=== PATIENT | female | born 1960 | race Caucasian/White ===

== ENCOUNTER 2022-06-12 09:31 | Emergency (ER) | payer OTHER, SELFPAY ==
[2022-06-12 09:41] VITALS: BP 137/117; PULSE 69; RESP 16; TEMP 36.7; O2SAT 98; BMI 20.8
--- NOTE | 2022-06-12 10:15 | ED_ITS ---
HPI - General Adult General Chief complaint: General Medical Stated complaint: Needs medication refill Time Seen by Provider: 06/12/22 10:15 Source: patient and family () Mode of arrival: ambulatory Limitations: no limitations History of Present Illness HPI narrative: Patient is a 62 year old assigned female at with a history of diabetes and hypertension presenting to the emergency department today requesting medication refills. Patient states that in December of this year she moved here from [place] and has since gotten to her . Patient states that she is still in the process of getting her visa figured out and getting into a primary care provider. Patient states that she would like refills of her hypertension and diabetes medication. Patient denies any dizziness, li ghtheadedness, abdominal pain, nausea, vomiting, fever, chills, blurry vision, double vision, loss of vision, chest pain, difficulty breathing, shortness of breath, back pain, night sweats, pain with urination, increased urinary frequency, increased urinary urgency, blood in her urine or stool, syncope or a near syncopal episode, recent trauma or falls, bowel incontinence, bladder incontinence, bowel retention, bladder retention, or any other complaints at this time. Severity: mild Severity scale (1-10): 1 Relieving factors: none Exacerbating factors: none Associated symptoms: denies other symptoms Treatments prior to arrival: none Related Data Previous Rx's Medication Instructions Recorded aspirin 81 mg tablet,delayed 81 mg PO DAILY #90 tabs 06/12/22 release (Enteric Coated Aspirin) ezetimibe 10 mg-simvastatin 80 mg 1 tab PO DAILY #90 tabs 06/12/22 tablet (Vytorin) fluoxetine 20 mg capsule 20 mg PO DAILY #90 caps 06/12/22 levetiracetam 1,000 mg tablet 1,000 mg PO BID #180 tabs 06/12/22 metformin 1,000 mg tablet 1,000 mg PO BID #180 tabs 06/12/22 metoprolol tartrate 50 mg tablet 50 mg PO BID #180 tabs 06/12/22 pantoprazole 40 mg tablet,delayed 40 mg PO DAILY #90 tabs 06/12/22 release sitagliptin phosphate 100 mg 100 mg PO DAILY #90 tabs 06/12/22 tablet (Januvia) Allergies Allergy/AdvReac Type Severity Reaction Status Date / Time No Known Allergies Allergy Verified 06/12/22 09:40 Review of Systems Constitutional: Constitutional: Reports no additional constitutional complaints, Denies chills, Denies fever(s) and Denies night sweats Eyes: Eyes: Reports no additional eye complaints, Denies blurry vision, Denies change in vision, Denies diplopia, Denies eye discharge, Denies loss of vision and Denies eye pain ENT: Denies dizziness Cardiovascular: Cardiovascular: Reports no additional cardiovascular complaints, Denies chest pain, Denies lightheadedness, Denies Loss of Consciousness and Denies dyspnea Respiratory: Respiratory: Reports no additional respiratory complaints and Denies dyspnea Gastrointestinal: Gastrointestinal: Reports no additional gastrointestinal complaints, Denies abdominal pain, Denies melena, Denies hematochezia, Denies change in bowel habits and Denies change in stool character Genitourinary: Genitourinary: Denies hematuria, Denies urinary frequency, Denies dysuria, Denies urinary incontinence, Denies urinary hesitancy and Denies urinary urgency Musculoskeletal: Musculoskeletal: Reports no additional musculoskeletal complaints, Denies numbness and Denies tingling Neurologic: Denies dizziness, Denies loss of vision, Denies numbness and Denies tingling Psychiatric: Psychiatric: Reports no additional psychiatric complaints Endocrine: Endocrine: Reports no additional endocrine complaints Hematologic/Lymphatic: Hematologic/Lymphatic: Reports no additional hematologic/lymphatic complaints Allergic/Immunologic: Allergic/Immunologic: Reports no additional allergic/immunologic complaints PMFSH Past Medical History Attestation statement: The following information was validated with the patient. Source: old records reviewed, obtained from family (patient's ) and nursing notes reviewed Social History Social History Advance Directives: No Advance Directives Information Provided: Yes Physical Exam ED Vital Signs: Vital Signs - 24 hr 06/12/22 09:41 Temperature 98.0 F Pulse Rate 69 Respiratory Rate 16 Blood Pressure 137/117 H Pulse Oximetry 98 Oxygen Delivery Method Room Air BMI result Body Mass Index 20.8 Const General: cooperative, no acute distress, alert and awake Nutritional Appearance: well nourished Orientation/consciousness: patient oriented x3 Limitations: no limitations HENMT Head: Yes normal to inspection and Yes atraumatic Ears: hearing grossly normal bilaterally and external ears normal General nose exam: Normal external nose present, no nasal discharge noted and no epistaxis Face and sinus: Yes normal facial exam, No abrasion and No laceration Mouth: Normal oral and palatal mucosa present, no drooling and no muffled voice Eyes General: appearance normal, both eyes and all related structures Periorbital: periorbital findings normal Eyelids: Yes eyelids normal Conjunctivae: conjunctivae normal Pupils: Equal, round and reactive pupils present EOM: EOMs intact bilaterally Neck Neck: Yes normal visual inspection, Yes full ROM and Yes no lymphadenopathy Chest Chest palpation & inspection: normal inspection of the chest Resp Effort & Inspection: normal respiratory effort and able to speak in complete sentences Auscultation: clear to auscultation bilaterally Cardio Rate: regular rate Rhythm: regular rhythm GI Inspection: Yes normal to inspection Palpation (GI): Soft to palpation, not firm, nontender and no guarding Neuro General: patient oriented x3 and moves all extremities Cranial nerves: Yes Equal, round and reactive pupils present Cognition (Neuro): normal cognition Motor exam (neuro): 5/5 motor strength present throughout Sensory Exam: Normal double simultaneous stimulation for sensation Coordination: [id number] test normal Extrem General: Yes normal to inspection, Yes full ROM and Yes capillary refill normal Psych Appearance: grossly normal Mental Status: mental status grossly normal Affect: normal affect Attitude: cooperative Thought process: Normal thought process present Thought content: Normal thought content present Insight: Good insight present (Psych) Medical Decision Making Medical Decision Making MDM Narrative: Patient is a 62 year old assigned female at with a history of diabetes and hypertension presenting to the emergency department today requesting medication refills. Patient's physical exam was unremarkable. I explained my physical exam findings to the patient and the patient's . I answered all questions asked by the patient and the patient's . I stressed the importance of the patient taking her medication as prescribed. I stressed the importance of the patient following up with a primary care provider. I stressed the importance of the patient returning to the emergency department immediately if she were to develop any dizziness, shortness of breath, difficulty breathing, chest pain, blurry vision, loss of vision, nausea, vomiting, abdominal pain, fever, chills, back pain, or any other complaints. Patient and the patient's verbalized agreement and understanding with this treatment plan and discharge. Independent Historian Clinical information obtained from an independent historian. History obtained from or confirmed by: Spouse () Discharge Plan Discharge Clinical Impression: Encounter for medication refill Patient Disposition: Home, Self-Care Instructions: Medicine Refill (ED) Additional Instructions: Follow up with a primary care provider. Return to the emergency department immediately if your symptoms worsen or if you develop any dizziness, shortness of breath, difficulty breathing, chest pain, blurry vision, loss of vision, nausea, vomiting, abdominal pain, fever, chills, back pain, or any other complaints. Prescriptions: New aspirin [Enteric Coated Aspirin] 81 mg tablet,delayed release (DR/EC) 81 mg PO DAILY Qty: 90 0RF Januvia 100 mg tablet 100 mg PO DAILY Qty: 90 0RF levetiracetam 1,000 mg tablet 1,000 mg PO BID Qty: 180 0RF fluoxetine 20 mg capsule 20 mg PO DAILY Qty: 90 0RF metformin 1,000 mg tablet 1,000 mg PO BID Qty: 180 0RF metoprolol tartrate 50 mg tablet 50 mg PO BID Qty: 180 0RF pantoprazole 40 mg tablet,delayed release (DR/EC) 40 mg PO DAILY Qty: 90 0RF ezetimibe-simvastatin [Vytorin 10-80] 10-80 mg tablet 1 tab PO DAILY Qty: 90 0RF Referrals: [facility] Family Medicine [Provider Group] (Call to establish and follow up with a primary care provider.) [facility] Primary CareJenna [Provider Group] (Call to establish and follow up with a primary care provider.) [facility] Primary Care,Rosita [Provider Group] (Call to establish and follow up with a primary care provider.) Interventions: ED Discharge Assessment Last Done: 06/12/22 10:56 Discharge Date/Time: 06/12/22 10:58 Print Language: Luxembourgish
== END 2022-06-12 10:58 | disposition home or self-care (01) ==
PROVIDERS: Emergency Provider Emergency Medicine
DX: Z76.0 Encounter for issue of repeat prescription (principal); E11.9 Type 2 diabetes mellitus without complications; I10 Essential (primary) hypertension
CPT/HCPCS: 99282; 99283

== ENCOUNTER 2022-09-19 12:17 | Emergency (ER) | payer OTHER, SELFPAY ==
[2022-09-19 12:31] VITALS: BP 153/70; PULSE 72; RESP 16; TEMP 36.6; O2SAT 96; BMI 24.9
--- NOTE | 2022-09-19 12:36 | ED.GENADULT ---
HPI - General Adult General Chief complaint: General Medical Stated complaint: medication refill Time Seen by Provider: 09/19/22 12:34 Source: patient Mode of arrival: ambulatory Limitations: no limitations History of Present Illness HPI narrative: 62-year-old female history of diabetes, hypertension presents to the emergency department seeking and medication refill, patient is on a wait list to obtain a PCP, recently moved from [place]. No medical complaints. Is close to running out. She tells me last time she came here for medication refill. Related Data Previous Rx's Medication Instructions Recorded ezetimibe 10 mg-simvastatin 80 mg 1 tab PO DAILY #90 tabs 06/12/22 tablet (Vytorin) fluoxetine 20 mg capsule 20 mg PO DAILY #90 caps 06/12/22 levetiracetam 1,000 mg tablet 1,000 mg PO BID #180 tabs 06/12/22 metformin 1,000 mg tablet 1,000 mg PO BID #180 tabs 06/12/22 metoprolol tartrate 50 mg tablet 50 mg PO BID #180 tabs 06/12/22 pantoprazole 40 mg tablet,delayed 40 mg PO DAILY #90 tabs 06/12/22 release sitagliptin phosphate 100 mg 100 mg PO DAILY #90 tabs 06/12/22 tablet (Januvia) aspirin 81 mg tablet,delayed 81 mg PO DAILY #90 tabs 09/19/22 release (Enteric Coated Aspirin) Allergies Allergy/AdvReac Type Severity Reaction Status Date / Time No Known Allergies Allergy Verified 06/12/22 09:40 Review of Systems Review of Systems: Constitutional : No Weight loss, No Fever, No Chills, No Fatigue, No Malaise ENT/Mouth : No sore throat, No Rhinorrhea Eyes: No Eye Pain, No Swelling, No Redness Cardiovascular : No Chest Pain, No SOB, No Dyspnea on Exertion, No Orthopnea, No Edema, No Palpitations Respiratory : No Cough, No Sputum, No Wheezing Gastrointestinal : No Nausea, No Vomiting, No Diarrhea, No Constipation, No abdominal Pain, No Hematochezia, No Melena Genitourinary : No Dysuria, No Urinary Frequency, No Hematuria, Musculoskeletal : No joint pain, No Myalgias, No Joint Swelling Skin : No Skin Lesions, No rash Neuro : No Weakness, No Numbness, No Dizziness, No Headache Psych : No Anxiety/Panic, No Depression All other systems reviewed and are negative Yes all other systems are reviewed and are negative [facility] Past Medical History Attestation statement: The following information was validated with the patient. Source: old records reviewed and nursing notes reviewed Physical Exam ED Vital Signs: Vital Signs - 24 hr 09/19/22 12:31 Temperature 98 F Pulse Rate 72 Respiratory Rate 16 Blood Pressure 153/70 H Pulse Oximetry 96 Oxygen Delivery Method Room Air BMI result Body Mass Index 24.9 Vital signs stable Appearance: Alert.? Oriented X3.? No acute distress.? Head: Normocephalic, atraumatic, no step-offs or deformities Eyes: Pupils equal, round and reactive to light.? Neck: Normal inspection.? Neck supple.? CVS: Normal heart rate and rhythm.? Pulses normal.? Respiratory: No respiratory distress.? Breath sounds normal.? Abdomen: Soft and nontender.? Skin: Skin warm and dry.? Normal skin color.? Normal skin turgor.? Extremities: No lower extremity edema.? No calf ttp. 5/5 strength to bilateral upper and lower extremitiesNeuro: Oriented X 3.? No motor deficit.? No sensory deficit. CN 2-12 intact Course Reevaluation(s) Reevaluation #1: Medications refilled. Patient will be discharged. Educated patient on diagnosis and treatment plan, answered all question, patient verbalizes understanding. At this time patient will be discharged home, advised to return with new or worsening symptoms. Educated on worrisome signs and symptoms and when to return. At this time I feel comfortable discharge home. Time: 12:41 Medical Decision Making Medical Decision Making MDM Narrative: 62-year-old female presents for medication refill. Normal physical exam No signs of metabolic disturbances. Complaints. Normal physical exam. Plan refill medications. Advised her to follow-up with PCPs office. As soon as possible. Differential Diagnosis Differential Diagnoses: The differential diagnosis associated with the presentation includes No signs of metabolic disturbances. Complaints. Normal physical exam. Admission/Observation Consideration of admission/observation: Escalation of care including admission/observation considered Not indicated Core Measures AMI core measures followed: Yes Measure exclusions: not indicated Discharge Plan Discharge Clinical Impression: Medication refill Patient Disposition: Home, Self-Care Instructions: Medicine Refill (ED) Additional Instructions: Take your medications as prescribed. If you were prescribed antibiotics today, it is important that you take your medication to their entirety, do not skip any doses, do not finish them early. Follow-up with your primary care provider this week. Return to the emergency department with new or worsening symptoms. Such as fevers, chills, chest pain, shortness of breath, nausea, vomiting, dizziness, headache, vision changes, lethargy In case of emergency call 911 Prescriptions: Continued Januvia 100 mg tablet 100 mg PO DAILY Qty: 90 0RF levetiracetam 1,000 mg tablet 1,000 mg PO BID Qty: 180 0RF fluoxetine 20 mg capsule 20 mg PO DAILY Qty: 90 0RF metformin 1,000 mg tablet 1,000 mg PO BID Qty: 180 0RF metoprolol tartrate 50 mg tablet 50 mg PO BID Qty: 180 0RF pantoprazole 40 mg tablet,delayed release (DR/EC) 40 mg PO DAILY Qty: 90 0RF ezetimibe-simvastatin [Vytorin 10-80] 10-80 mg tablet 1 tab PO DAILY Qty: 90 0RF aspirin [Enteric Coated Aspirin] 81 mg tablet,delayed release (DR/EC) 81 mg PO DAILY Qty: 90 0RF Referrals: Physician,None [Primary Care Provider] - 2 days
== END 2022-09-19 15:34 | disposition home or self-care (01) ==
LOC: HO.ED 12:49
PROVIDERS: Emergency Provider Emergency Medicine
DX: Z76.0 Encounter for issue of repeat prescription (principal); Z79.899 Other long term (current) drug therapy
CPT/HCPCS: 99282; 99283

== ENCOUNTER 2023-02-09 09:36 | Emergency (ER) | payer OTHER, SELFPAY ==
[2023-02-09 09:50] VITALS: BP 149/91; PULSE 79; RESP 16; TEMP 36.5; O2SAT 96; BMI 26.2
--- NOTE | 2023-02-09 11:07 | ED.RECABL ---
HPI - Recheck/Abnormal Lab/Rx General Chief Complaint: General Medical Stated Complaint: Med Refill Time Seen by Provider: 02/09/23 09:56 Source: patient and family Mode of arrival: ambulatory Limitations: no limitations History of Present Illness HPI narrative: 62-year-old female with a past medical history of diabetes, hypertension who is presenting to the ER for medication refill she is on 90 for medications that she needs refilled. She is currently on multiple waiting list for PCP. Recently moved from [place]. Denies any medical complaints. Is pretty much out of all her medications at this time. Reports she came here last time for medication refill. She denies any other symptoms complaints concerns at this time. MD complaint: medication refill request Related Data Previous Rx's Medication Instructions Recorded ezetimibe 10 mg-simvastatin 80 mg 1 tab PO DAILY #90 tabs 06/12/22 tablet (Vytorin) fluoxetine 20 mg capsule 20 mg PO DAILY #90 caps 06/12/22 levetiracetam 1,000 mg tablet 1,000 mg PO BID #180 tabs 06/12/22 metformin 1,000 mg tablet 1,000 mg PO BID #180 tabs 06/12/22 metoprolol tartrate 50 mg tablet 50 mg PO BID #180 tabs 06/12/22 pantoprazole 40 mg tablet,delayed 40 mg PO DAILY #90 tabs 06/12/22 release sitagliptin phosphate 100 mg 100 mg PO DAILY #90 tabs 06/12/22 tablet (Januvia) aspirin 81 mg tablet,delayed 81 mg PO DAILY #90 tabs 09/19/22 release aspirin 81 mg tablet,delayed 81 mg PO DAILY #90 tabs 09/19/22 release (Enteric Coated Aspirin) ezetimibe 10 mg-simvastatin 80 mg 1 tab PO DAILY #90 tabs 09/19/22 tablet (Vytorin) fluoxetine 20 mg tablet 20 mg PO DAILY #90 tabs 09/19/22 metformin 1,000 mg tablet 1,000 mg PO BID #180 tabs 09/19/22 metoprolol tartrate 50 mg tablet 50 mg PO BID #180 tabs 09/19/22 pantoprazole 40 mg tablet,delayed 40 mg PO DAILY #90 tabs 09/19/22 release sitagliptin phosphate 100 mg 100 mg PO DAILY #90 tabs 09/19/22 tablet (Januvia) albuterol sulfate 90 mcg/actuation 1 inh inhalation Q6H PRN shortness 02/09/23 aerosol inhaler (Ventolin HFA) of breath or wheezing #8.5 grams aspirin 81 mg capsule 81 mg PO DAILY #90 caps 02/09/23 ezetimibe 10 mg-simvastatin 80 mg 1 tab PO DAILY #90 tabs 02/09/23 tablet (Vytorin) fluoxetine 20 mg tablet 20 mg PO DAILY #90 tabs 02/09/23 levetiracetam 1,000 mg tablet 1,000 mg PO BID #180 tabs 02/09/23 metformin 1,000 mg tablet 1,000 mg PO BID #180 tabs 02/09/23 metoprolol tartrate 50 mg tablet 50 mg PO BID #180 tabs 02/09/23 pantoprazole 40 mg tablet,delayed 40 mg PO DAILY #90 tabs 02/09/23 release sitagliptin phosphate 100 mg 100 mg PO DAILY #90 tabs 02/09/23 tablet (Januvia) Allergies Allergy/AdvReac Type Severity Reaction Status Date / Time No Known Allergies Allergy Verified 02/09/23 09:50 Review of Systems Review of Systems: Constitutional : No Weight loss, No Fever, No Chills, No Night Sweats, No Fatigue, No Malaise ENT/Mouth : No Hearing loss, No Ear Pain, No Nasal Congestion, No Sinus Pain, No Hoarseness, No sore throat, No Rhinorrhea, No Swallowing Difficulty Eyes: No Eye Pain, No Swelling, No Redness, No Foreign Body, No Discharge, No Vision Changes Cardiovascular : No Chest Pain, No SOB, No Dyspnea on Exertion, No Orthopnea, No Edema, No Palpitations Respiratory : No Cough, No Sputum, No Wheezing, No Smoke Exposure, No Dyspnea Gastrointestinal : No Nausea, No Vomiting, No Diarrhea, No Constipation, No abdominal Pain, No Hematochezia, No Melena Genitourinary : no irregular bleeding, No Dysuria, No Urinary Frequency, No Hematuria, No Urinary Incontinence, No Urgency, No Flank Pain, No Urinary Flow Changes, No Hesitancy Musculoskeletal : No joint pain, No Myalgias, No Joint Swelling Skin : No Skin Lesions, No rash Neuro : No Weakness, No Numbness, No Paresthesias, No Loss of Consciousness, No Dizziness, No Headache Psych : No Anxiety/Panic, No Depression, No SI/HI/AH/VH, No Social Issues, Heme/Lymph: No Bruising, No Bleeding,No Lymphadenopathy Endocrine : No Polyuria, No Polydipsia, No Temperature Intolerance Yes all other systems are reviewed and are negative [facility] Past Medical History Attestation statement: The following information was validated with the patient. Source: old records reviewed, obtained from family and nursing notes reviewed Social History Social History Advance Directives: No Advance Directives Information Provided: No Physical Exam Vital Signs: Vital Signs: Last Vital Signs Temp 97.7 F 02/09/23 09:50 Pulse 79 02/09/23 09:50 Resp 16 02/09/23 09:50 BP 149/91 H 02/09/23 09:50 Pulse Ox 96 02/09/23 09:50 O2 Del Method Room Air 02/09/23 09:50 BMI result Body Mass Index 26.2 Vital signs reviewed. Blood pressure normal. Pulse normal. Respiration normal. Oxygen normal. Temperature normal. Appearance: Alert. Oriented X3. No acute distress. Head: Normal external exam. Normocephalic. Atraumatic. Eyes: PERRLA. EOMI. Conjunctiva and sclera normal. Eyelids normal. ENT: EAC normal. TM's Normal. Pharynx normal. Uvula midline. Moist mucous membranes. No lesions/ulcerations or masses noted on the tongue. Normal voice. No trismus noted. No drooling noted. No muffled voice noted. Neck: Normal inspection. Neck supple. FROM. No adenopathy. Thyroid Normal. No meningeal signs. CVS: Normal heart rate and rhythm. Heart sound normal. Pulses normal throughout. No murmurs/rales/gallops. Respiratory: No respiratory distress. Painless inspiration. Breath sounds normal. No wheezes/rales/rhonchi noted. Chest nontender. No accessory muscle usage noted or decreased air movement noted. Abdomen: Soft and nontender. Back: Full range of motion noted. Nontender. Skin: Skin warm and dry. Normal skin color. Normal skin turgor. No rashes/lesions/lacerations noted. Extremities: Extremities exhibit normal range of motion and nontender. Neuro: Oriented X 3. No motor deficit. No sensory deficit. Reflexes normal. Normal steady gait. No focal neuro deficits noted. CN's II-XII intact bilaterally? Vascular: + radial pulses. Normal cap refill. No cyanosis noted to upper extremity nails Course Course Course Narrative: 62-year-old for medication refill denies any other symptoms complaints or concerns. Does need a primary care provider is currently on a waiting list. Therefore will refer her to all provider that I know is accepting patients although they are in [place] she reports this is okay with her. Will refill her 9 medications. Gave her 3 refills. Therefore patient will tried a called a new primary care provider referred her to and return if any new or worsening symptoms. Patient with family at bedside understand agree this plan. Medical Decision Making Independent Historian Clinical information obtained from an independent historian. History obtained from or confirmed by: Friend External Record Review External record reviewed: Other patient's prior visits here in the ER reviewed by myself no other medical records able to review Chronic Conditions Patient?s care impacted by: Hypertension Social Determinants Patient?s care significantly limited by Social Determinants of Health including: Low income, Problems related to primary support group, Unemployment, Problems related to employment and Other Social Determinant of Health Discharge Plan Discharge Clinical Impression: Medication refill Patient Disposition: Home, Self-Care Instructions: Medicine Refill (ED) Prescriptions: New aspirin 81 mg capsule 81 mg PO DAILY Qty: 90 3RF ezetimibe-simvastatin [Vytorin 10-80] 10-80 mg tablet 1 tab PO DAILY Qty: 90 3RF fluoxetine 20 mg tablet 20 mg PO DAILY Qty: 90 3RF levetiracetam 1,000 mg tablet 1,000 mg PO BID Qty: 180 3RF metformin 1,000 mg tablet 1,000 mg PO BID Qty: 180 3RF metoprolol tartrate 50 mg tablet 50 mg PO BID Qty: 180 3RF pantoprazole 40 mg tablet,delayed release (DR/EC) 40 mg PO DAILY Qty: 90 3RF Januvia 100 mg tablet 100 mg PO DAILY Qty: 90 3RF albuterol sulfate [Ventolin HFA] 90 mcg/actuation HFA aerosol inhaler 1 inh inhalation Q6H PRN (Reason: shortness of breath or wheezing) Qty: 8.5 3RF No Action Januvia 100 mg tablet 100 mg PO DAILY Qty: 90 0RF levetiracetam 1,000 mg tablet 1,000 mg PO BID Qty: 180 0RF fluoxetine 20 mg capsule 20 mg PO DAILY Qty: 90 0RF metformin 1,000 mg tablet 1,000 mg PO BID Qty: 180 0RF metoprolol tartrate 50 mg tablet 50 mg PO BID Qty: 180 0RF pantoprazole 40 mg tablet,delayed release (DR/EC) 40 mg PO DAILY Qty: 90 0RF ezetimibe-simvastatin [Vytorin 10-80] 10-80 mg tablet 1 tab PO DAILY Qty: 90 0RF aspirin [Enteric Coated Aspirin] 81 mg tablet,delayed release (DR/EC) 81 mg PO DAILY Qty: 90 0RF aspirin 81 mg tablet,delayed release (DR/EC) 81 mg PO DAILY Qty: 90 0RF ezetimibe-simvastatin [Vytorin 10-80] 10-80 mg tablet 1 tab PO DAILY Qty: 90 0RF fluoxetine 20 mg tablet 20 mg PO DAILY Qty: 90 0RF Januvia 100 mg tablet 100 mg PO DAILY Qty: 90 0RF metformin 1,000 mg tablet 1,000 mg PO BID Qty: 180 0RF metoprolol tartrate 50 mg tablet 50 mg PO BID Qty: 180 0RF pantoprazole 40 mg tablet,delayed release (DR/EC) 40 mg PO DAILY Qty: 90 0RF Referrals: Physician,None [Primary Care Provider] - (Dr. Long Ornelas, [employer]INT[employer]ESS[employer] at [address] [facility], [place] [address] call at [phone] if you need to establish a primary care provider he may be accepting new patients call to make a follow-up appointment)
== END 2023-02-09 11:18 | disposition home or self-care (01) ==
PROVIDERS: Emergency Provider Emergency Medicine Emergency Medical Services
DX: Z76.0 Encounter for issue of repeat prescription (principal); E11.9 Type 2 diabetes mellitus without complications; I10 Essential (primary) hypertension
CPT/HCPCS: 99282